=== PATIENT | male | born 1980 | race Caucasian/White ===

== ENCOUNTER 2024-08-19 13:25 | Emergency (ER) | payer OTHER, SELFPAY ==
[2024-08-19] VITALS (16 sets, daily range): BP systolic 104–134; BP diastolic 59–96; BMI 39.4
--- NOTE | 2024-08-19 13:29 | ED.GENMED ---
ED Provider Triage
<Edda Lee PA-C - Last Filed: 08/19/24 18:47>
-
Patient seen by provider in Triage?: Seen in Triage
Attestation: A medical screening examination has been initiated by a qualified medical provider. Based on the assessment performed at this time, it has been determined that an emergent medical condition may exist and the patient has been informed
that further medical evaluation and possible additional diagnostic testing may be needed.
HPI: 44yoM here with palpitations that began at 10:30am this morning. Associated with SOB and chest discomfort. [employer] alerted him that he was in afib. No prior history of afib.
GENERAL: Alert , in no apparent distress
EYE: No visual abnormalities.
NECK: Trachea midline
ENT: No visible abnormalities.
LUNGS: No acute respiratory distress
NEUROLOGICAL: Alert and oriented
SKIN: Skin intact. No visible changes.
MUSCULOSKELETAL: Moving extremities normally
PSYCH: Normal and appropriate interaction.
This is a medical evaluation conducted in person to initiate diagnostic evaluation and provide initial therapeutics. Please see further documentation by the treating clinician.
Cardiac labs, TSH, magnesium, and EKG ordered.
History of Present Illness
<Edda Lee PA-C - Last Filed: 08/19/24 18:47>
General
Chief Complaint: Heart Rate Problem
Time Seen by Provider: 08/19/24 16:12
<CHON King - Last Filed: 08/19/24 20:01>
General
Source: patient
Exam Limitations: none
Nursing documentation reviewed up to this point in time: agreed with
History of Present Illness
History of Present Illness:
44 old male presents to the ER for evaluation. Patient reports around 1015 this morning had a very odd feeling in his chest and felt his heart racing. At 10:30 AM he was on a work call got very short of breath and cannot catch his breath. Patient
presents here to the ER in triage and A-fib.
Patient denies any associated chest pain. He has no prior history of A-fib. He denies any cardiac history. He denies any chest pain.
Denies any recent fever/chills.
Patient does admit to drinking a lot of caffeine per day. denies any new [id number] cough cold medicines.
Review of Systems
<CHON King - Last Filed: 08/19/24 20:01>
Review of Systems
Allergies reviewed?: Yes
All Other Systems: ROS reviewed and negative except as documented in HPI and ROS
Constitutional: Reports no symptoms; Denies fever, fatigue or chills
Respiratory: Reports no symptoms
Cardiac: Reports palpitations and other (odd feeling in chest at 10: 15 am ); Denies chest pain or diaphoresis
ABD/GI: Reports no symptoms
: Reports no symptoms
Musculoskeletal: Reports no symptoms
Skin: Reports no symptoms
Neurological: Reports no symptoms
Psychiatric: Reports no symptoms
Phy Exam
<CHON King - Last Filed: 08/19/24 20:01>
General Physical Exam
General Presentation: no apparent distress
General age: appears stated age
General Skin: warm and dry
General Habitus: normal
General Mental: alert
General Hydration: appears well hydrated
Cardiovascular Exam
Cardiovascular Exam: no murmur and irregularly irregular
Pulmonary Exam
Pulmonary Exam: lungs clear and no respiratory distress
Neurological Exam
Neurological Exam: alert and oriented x3
Musculoskeletal Exam
Musculoskeletal Exam: full ROM
Skin Exam
Skin Exam: normal color and warm/dry
Psychiatric Exam
Psychiatric Exam: normal mood/affect
Scores
<Edda Lee PA-C - Last Filed: 08/19/24 18:47>
[id number] Score for Afib Stroke Risk
Score: 0
Anticoagulation Recommendations: Anticoagulation not indicated (as validated in nonvalvular afib). Consider anticoagulation irrespective of score in patients with HCM
<CHON King - Last Filed: 08/19/24 20:01>
[id number] Score for Afib Stroke Risk
Age in Years (65=0, 65-74=1, >/=75=2): <65
Sex (Female=+1): Male
Congestive Heart Failure History (Yes=+1): No
Hypertension History (Yes=+1): No
Stroke/TIA/Thromboembolism History (Yes=+2): No
Vascular Disease History (Yes=+1): No
Diabetes Mellitus (Yes=+1): No
Score: 0
Anticoagulation Recommendations: Anticoagulation not indicated (as validated in nonvalvular afib). Consider anticoagulation irrespective of score in patients with HCM
<Santy Gómez DO - Last Filed: 08/19/24 17:04>
[id number] Score for Afib Stroke Risk
Score: 0
Anticoagulation Recommendations: Anticoagulation not indicated (as validated in nonvalvular afib). Consider anticoagulation irrespective of score in patients with HCM
Course
<Edda Lee PA-C - Last Filed: 08/19/24 18:47>
Orders/Labs/Results
Orders:
Orders
08/19/24 13:26
Electrocardiogram (*1) Urgent
Reason for Study: Palpitations
EKG- Treatment ONCE
08/19/24 13:40
Complete Blood Count/With Diff Urgent
Comprehensive Metabolic Panel Urgent
Magnesium Urgent
TSH Reflex To Free T4 Urgent
Troponin I Urgent
08/19/24 17:21
Propofol [Diprivan] 20 ml .ROUTE .STK-MED
Abnormal Lab Results
08/19/24
13:40
BUN 23 H mg/dl
(9-20)
Glucose 109 H mg/dl
(70-99)
08/19/24 13:40
08/19/24 13:40
Vital Signs
Initial and Last Documented VS:
Initial Vital Signs
Temp Resp
98.0 F 18
08/19/24 13:28 08/19/24 13:28
Last Documented Vital Signs
Temp Pulse Resp BP Pulse Ox
98.1 F 68 27 125/72 96
08/19/24 18:38 08/19/24 18:40 08/19/24 18:40 08/19/24 18:40 08/19/24 18:40
<CHON King - Last Filed: 08/19/24 20:01>
Orders/Labs/Results
Orders:
Orders
08/19/24 13:26
Electrocardiogram (*1) Urgent
Reason for Study: Palpitations
EKG- Treatment ONCE
08/19/24 13:40
Complete Blood Count/With Diff Urgent
Comprehensive Metabolic Panel Urgent
Magnesium Urgent
TSH Reflex To Free T4 Urgent
Troponin I Urgent
08/19/24 17:21
Propofol [Diprivan] 20 ml .ROUTE .STK-MED
Abnormal Lab Results
08/19/24
13:40
BUN 23 H mg/dl
(9-20)
Glucose 109 H mg/dl
(70-99)
08/19/24 13:40
08/19/24 13:40
Vital Signs
Initial and Last Documented VS:
Initial Vital Signs
Temp Resp
98.0 F 18
08/19/24 13:28 08/19/24 13:28
Last Documented Vital Signs
Temp Pulse Resp BP Pulse Ox
98.1 F 68 27 125/72 96
08/19/24 18:38 08/19/24 18:40 08/19/24 18:40 08/19/24 18:40 08/19/24 18:40
Recovery Room Nurse consulted with Physician
Recovery Room Nurse consulted with physician?: Yes
Name of Physician Consulted: DR Gómez
<Santy Gómez DO - Last Filed: 08/19/24 17:04>
Orders/Labs/Results
Orders:
Orders
08/19/24 13:26
Electrocardiogram (*1) Urgent
Reason for Study: Palpitations
EKG- Treatment ONCE
08/19/24 13:40
Complete Blood Count/With Diff Urgent
Comprehensive Metabolic Panel Urgent
Magnesium Urgent
TSH Reflex To Free T4 Urgent
Troponin I Urgent
08/19/24 17:21
Propofol [Diprivan] 20 ml .ROUTE .STK-MED
Abnormal Lab Results
08/19/24
13:40
BUN 23 H mg/dl
(9-20)
Glucose 109 H mg/dl
(70-99)
08/19/24 13:40
08/19/24 13:40
Vital Signs
Initial and Last Documented VS:
Initial Vital Signs
Temp Resp
98.0 F 18
08/19/24 13:28 08/19/24 13:28
Last Documented Vital Signs
Temp Pulse Resp BP Pulse Ox
98.1 F 68 27 125/72 96
08/19/24 18:38 08/19/24 18:40 08/19/24 18:40 08/19/24 18:40 08/19/24 18:40
Procedures
<CHON King - Last Filed: 08/19/24 20:01>
Cardioversion
Indication:: Afib
Performed by:: DR Myers and myself
Synchronized?: Yes
Energy Used: 150 joules
Number of attempts: 1
Successful?: Yes
ASA Risk Score: Class I
Any reaction or bad outcome to prior sedation/anesthesia?: No history of a reaction
Sedation level to be attained: moderate
Chart and allergies reviewed: Yes
Patient reassessed prior to sedation: Yes
Time out completed at (validating right patient & procedure): 17:56
History of difficult intubation: No
Airway free of obstruction: Yes
Patient has a gag reflex: Yes
Patient is able to open mouth: Yes
Patient has no dentures: Yes
Patient has no loose teeth: Yes
Medication administered by Provider during Moderate Sedation: IV Propofol (mg)
Total dose administered: 120
Time drug administered: 17:47
Start Time: 17:57
Stop Time: 18:08
<CHON King - Last Filed: 08/19/24 20:01>
MDM/Problems Addressed
Differential Diagnosis Includes:
Not limited to new onset
MDM/Problems Addressed:
As documented patient is a 44-year-old male who presents to the ER for evaluation. Patient reports around 10 AM as documented he a weird sensation in his chest, he did feel palpitations and around 10:30 AM he felt short of breath while on a call.
Patient presents in new onset A-fib. He reports prior to around 10 AM he felt perfectly fine.
Patient presents A-fib in a controlled rate no associated chest pain. Normal TSH normal blood work patient with no cardiac history. Case discussed with cardiology on-call Dr. Didi pacheco who does recommend cardioversion. Patient's MICKY VASC score
is zero patient will not require anticoagulation. Case reviewed with ED physician patient was given moderate sedation and cardioverted into normal sinus rhythm on 1 attempt to the 150 J.
As discussed with cardiology will DC on baby aspirin with close outpatient follow-up cardiology. Discussed with patient avoid caffeine stable hydrated.
<CHON King - Last Filed: 08/19/24 20:01>
*Critical Care Note
Total Time (30-74mins, 75-104mins- exclusive of procedures): Not Applicable
<CHON King - Last Filed: 08/19/24 20:01>
Patient Management
Discussion with other providers: Investor Relations Manager (DR Tolbert )
ED Attending Note
<Edda Lee PA-C - Last Filed: 08/19/24 18:47>
-
Portions of this chart may have been created with voice recognition software.� Occasional wrong word or��sound alike� substitutions may have occurred due to the inherent limitations of voice recognition software.
<Santy Gómez DO - Last Filed: 08/19/24 17:04>
ED Attending Note
Patient seen and examined by attending physician: Yes
I performed the substantive portion of visit, reviewed & personally made and approve the management plan that is documented in note by myself or FADI.: Yes
ED Attending Note:
Patient is a healthy 44-year-old male who was on a phone call for work today when he went into atrial fibrillation. Patient felt the palpitations. Patient denies any previous history. Patient denies any weight changes, rashes, joint pain, fever
or chills. Patient denies any history of hypertension, thyroid disease or valvular heart disease. Patient did not feel short of breath or have chest pain. Patient was not diaphoretic. Patient denies any GI or symptoms. On physical exam
patient does not appear to be in a distress. Heart is a regular irregular rhythm with a rapid rate. Lungs are clear. Extremities without edema or cyanosis. Patient last ate at 8 AM. After discussion with patient and his as well as
cardiology will do cardioversion and placed the patient on baby aspirin. He will follow-up with cardiology.
Discharge Plan
Departure
Patient Disposition: Home (Routine Discharge)
Date of Disposition: 08/19/24
Time of Disposition: 18:54
Patient with high blood pressure during this ER visit?: No
Discharge Problem:
Atrial fibrillation
Instructions: Atrial Fibrillation (DC), Cardioversion (DC), MODERATE SEDATION ADULT
Referrals:
Sunil Tolbert MD [Active] -
Dakota Montelongo MD [Family Provider] -
Activity Restrictions/Additional Instructions:
Take a baby aspirin a day.
Interventions
Interventions:
*Risk Screen - Suicide Last Done: 08/19/24 16:10
*General Assessment Last Done: 08/19/24 13:31
*Neglect/Abuse Screening Last Done: 08/19/24 16:10
ED- Fall Risk Assessment Last Done: 08/19/24 16:10
*ED COVID-19 Vaccine History Last Done: 08/19/24 13:32
*Nursing Disposition Last Done: 08/19/24 18:59
ED- Cardiac Assessment Last Done: 08/19/24 16:10
ED- Pulmonary Assessment Last Done: 08/19/24 16:10
Discharge Date and Time
Discharge Date/Time: 08/19/24 19:00
Print Language: HUNGARIAN
[2024-08-19 13:54] LABS: % Basophils 0.3 % (0-2); % Eosinophils 1.5 % (0-6); % Immature Granulocytes 0.3 % (0-0.5); % Lymphocytes 28.3 % (20.5-51.1); % Neutrophils 64.6 % (42.2-75.2); Absolute Eosinophils 0.1 10^3/uL (0-0.7); Absolute Lymphocytes 1.7 10^3/uL (1.2-3.4); Absolute Monocytes 0.3 10^3/uL (0.1-0.6); Absolute Neutrophils 3.9 10^3/uL (1.4-6.5); Hematocrit 48.1 % (39.0-52.0); Hemoglobin 17.2 g/dL (13.0-18.0); Mean Corp Hgb Conc. 35.8 g/dL (33.0-37.0); Mean Corpuscular Hgb 30.2 pg (27.0-31.0); Mean Corpuscular Volume 84.4 fL (80.0-94.0); Mean Platelet Volume 8.7 fL (7.4-10.4); Nucleated Red Blood Cells % 0 % (-); Platelet Count 198 10^3/uL (130-400); Red Cell Dist. Width 12.7 % (11.5-14.5); White Blood Cell Count 6.1 10^3/uL (4.8-10.8)
[2024-08-19 14:06] LABS: ALT (SGPT) 26 U/L (0-50); AST (SGOT) 23 U/L (17-59); Albumin 4.8 g/dl (3.5-5.0); Alkaline Phosphatase 76 U/L (38-126); Blood Urea Nitrogen 23 mg/dl (9-20); Calcium 9.9 mg/dl (8.4-10.2); Carbon Dioxide 29 mmol/L (22-30); Chloride 102 mmol/L (98-107); Glucose 109 mg/dl (70-99); Potassium 4.6 mmol/L (3.5-5.1); Sodium 141 mmol/L (135-145); Total Bilirubin 0.8 mg/dl (0.2-1.3); eGFR > 60.00
[2024-08-19 14:21] LABS: Troponin I < 0.012 ng/ml
[2024-08-19 14:35] LABS: TSH Reflex To Free T4 2.93 uIU/ml (0.47-4.68)
== END 2024-08-19 19:00 | disposition home or self-care (01) ==
LOC: EMR 13:25
PROVIDERS: Physician Assistant; EMERGENCY PHYSICIAN Emergency Medicine; FAMILY PHYSICIAN Family Medicine
DX: I48.91 Unspecified atrial fibrillation (principal); R06.02 Shortness of breath
CPT/HCPCS: 99285; 92960; 99152; 80053; 83735; 84443; 84484; 85025; 93005